=== PATIENT | female | born 1990 | race Two or more races ===

== ENCOUNTER 2021-03-18 23:46 | Emergency (ER) | payer SELFPAY ==
[~2021-03-18] VITALS: Ht 149.9 cm; Wt 74.1 kg
[~2021-03-18 23:46] MED LIST: DOCU-109 PO; IBUP-1060 PO; LABE100T5 PO; OXYC1TAB15 PO
--- NOTE | 2021-03-19 00:17 | PHYS DOC ---
Past Medical History Past Medical History: No Pertinent History Past Surgical History: No Surgical History Smoking Status: Never Smoker General Adult EDM: Chief Complaint: BACK PAIN OR INJURY HPI: HPI: Patient is a 31 year old female who presents with abdominal pain for the past 5 hours that started in her right lower back and radiates around to her right lower abdomen. She is also having pain in her mid lower abdomen. She has not taken anything for the pain. She notes she has had dysuria for the past four days. 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 She also notes she is having nausea. Patient also complains of shortness of breath that is exacerbated by the pain. She has not had any fevers. She otherwise is not complaining of any other symptoms. Review of Systems: Review of Systems: Constitutional: Denies fever or chills HENT: Denies nasal congestion or sore throat Respiratory: Reports shortness of breath, denies cough Cardiovascular: Denies chest pain or palpitations GI: Reports abdominal pain and nausea, denies vomiting : Reports dysuria and hematuria Musculoskeletal: reports right lower back pain, denies other joint pain Integument: Denies rash or skin lesions Neurologic: Denies headache or focal weakness Complete systems were reviewed and found to be within normal limits, except as documented in this note. Heart Score: C/O Chest Pain: N/A Allergies: Allergies: Allergies Coded Allergies Type Severity Reaction Last Updated Verified ampicillin Allergy Intermediate Rash 03/01/14 Yes Physical Exam: PE: Constitutional: Well developed, well nourished, moderate distress secondary to pain, non-toxic appearance HENT: Normocephalic, atraumatic Eyes: Conjunctiva normal, no discharge Neck: Normal range of motion, supple Lungs & Thorax: Lungs CTAB, Heart regular rate and rhythm, No respiratory distress, equal chest rise and fall Abdomen: Tender to all four quadrants, significant suprapubic and RLQ tenderness, no erythema or signs of trauma to abdomen Skin: Warm, dry, no erythema, no rash Back: Right sided CVA tenderness Extremities: No tenderness, no edema Neurologic: Alert and oriented X 3, normal motor function, normal sensory function, no focal deficits noted Psychologic: Affect normal, judgment normal EKG: EKG: [] Radiology/Procedures: Radiology/Procedures: PROCEDURE: CT ABDOMEN PELVIS WO CONTRAST EXAM: CT Abdomen and Pelvis without IV contrast CLINICAL HISTORY: Reason: right flank pain / Spl. Instructions: / History: . COMPARISON: none TECHNIQUE: Helical CT of the abdomen and pelvis without intravenous contrast. Axial, coronal and sagittal reformatted images were generated. PQRS compliance statement - One or more of the following individualized dose reduction techniques were utilized for this study: 1. Automated exposure control 2. Adjustment of the mA and/or kV according to patient size 3. Use of iterative reconstruction technique FINDINGS: Lack of intravenous contrast limits evaluation of solid organs, vasculature, and lymph nodes. Lower chest: Lung bases are clear. Calcified granuloma lingula. Abdomen and Pelvis: No focal liver lesion. Gallbladder is normal. No biliary ductal dilatation. Pancreas, spleen and adrenal glands are normal. No focal renal lesion. No hydronephrosis. No hydroureter. Uterus and adnexa are unremarkable. Appendix is normal. Moderate colonic stool content is seen. No small or large bowel dilatation. No abdominal or pelvic ascites. No abdominal or pelvic lymphadenopathy. Aorta is normal in caliber. Bones: No aggressive osseous lesion is seen. IMPRESSION: Moderate colonic stool content. No bowel obstruction. No renal tract calculus. No hydronephrosis or hydroureter. Electronically signed by: Evens Fleming MD (03/19/2021 1:50 AM) [facility] Course & Med Decision Making: Course & Med Decision Making Pertinent Labs and Imaging studies reviewed. (See chart for details) Patient presented with lower back and abdominal pain. Ketorolac and Reglan were given for pain and nausea management. Urine was negative for infection. CT abdomen/pelvis w/o contrast was ordered which was positive for moderate colonic stool indicative of constipation. Patient stable for discharge with outpatient follow-up with PCP. Discussed findings and plan with patient, who acknowledges understanding and agreement. Sent home with Hyoscyamine and Zofran. [] Dragon Disclaimer: Pradip Disclaimer: This electronic medical record was generated, in whole or in part, using a voice recognition dictation system. Departure Departure Impression: Primary Impression: Abdominal pain Qualified Codes: R10.31 - Right lower quadrant pain Disposition: HOME / SELF CARE / HOMELESS Condition: STABLE Referrals: NO PCP (PCP) JUANITO GOODMAN MD Patient Instructions: Abdominal Pain, [id number] Additional Instructions: Increase fluid hydration. Follow closely with your doctor. Scripts Hyoscyamine Sulfate (LEVSIN-SL) 0.125 Mg Tab.subl 0.125 MG SL Q4-6HRS PRN for PAIN, #20 TAB Prov: CEASAR WOLFF DO 03/19/21 Ondansetron (ONDANSETRON ODT) 4 Mg Tab.rapdis 1 TAB PO PRN Q6-8HRS PRN for NAUSEA, #16 TAB Prov: CEASAR WOLFF DO 03/19/21 CEASAR WOLFF DO Mar 19, 2021 00:17
[2021-03-19 00:45] LABS: BILIRUBIN,URINE NEGATIVE (NEG); CLARITY,URINE CLEAR; COLOR,URINE YELLOW; NITRITE,URINE NEGATIVE (NEG); PROTEIN,URINE NEGATIVE (NEG-TRACE); UROBILINOGEN,URINE 0.2 mg/dL (0.2 mg/dL)
[2021-03-19 00:55] LABS: BACTERIA,URINE FEW /HPF (0-FEW); RBC,URINE 0 /HPF (0-2); WBC,URINE OCC /HPF (0-4)
[2021-03-19] MEDS ORDERED: IV NORMAL SALINE 1000ML BAG 1,000 ML IV ONE (01:00)
[2021-03-19] MEDS ORDERED: METOCLOPRAMIDE HCL 10 MG/2 ML VIAL. IVP ONE (01:00)
[2021-03-19] MEDS ORDERED: KETOROLAC 30 MG/ML VIAL. IVP ONE (01:00)
[2021-03-19 01:42] LABS: BASO # 0.1 x10^3/uL (0.0-0.2); BASO % 1 % (0-3); EOS # 0.1 x10^3/uL (0.0-0.7); EOS % 1 % (0-3); HEMATOCRIT 37.5 % (36.0-47.0); HEMOGLOBIN 12.7 g/dL (12.0-15.5); LYMPH % 34 % (24-48); MEAN CORPUSCULAR HEMOGLOBIN 30 pg (25-35); MEAN CORPUSCULAR HGB CONC 34 g/dL (31-37); MEAN CORPUSCULAR VOLUME 88 fL (79-100); MONO # 0.6 x10^3/uL (0.0-1.1); MONO % 7 % (0-9); NEUT # 5.1 x10^3/uL (1.8-7.7); NEUT % 57 % (31-73); PLATELET COUNT 262 x10^3/uL (140-400); RED BLOOD COUNT 4.26 x10^6/uL (3.50-5.40); RED CELL DISTRIBUTION WIDTH 12.7 % (11.5-14.5); WHITE BLOOD COUNT 8.9 x10^3/uL (4.0-11.0)
--- NOTE | 2021-03-19 01:52 | RAD ---
EXAM: CT Abdomen and Pelvis without IV contrast CLINICAL HISTORY: Reason: right flank pain / Spl. Instructions: / History: . COMPARISON: none TECHNIQUE: Helical CT of the abdomen and pelvis without intravenous contrast. Axial, coronal and sagi ttal reformatted images were generated. PQRS compliance statement - One or more of the following individualized dose reduction techniques wer e utilized for this study: 1. Automated exposure control 2. Adjustment of the mA and/or kV according to patient size 3. Use of iterative reconstruction technique FINDINGS: Lack of intravenous contrast limits evaluation of solid organs, vasculature, and lymph nodes. Lower chest: Lung bases are clear. Calcified granuloma lingula. Abdomen and Pelvis: No focal liver lesion. Gallbladder is normal. No biliary ductal dilatation. Pancreas, spleen and adre nal glands are normal. No focal renal lesion. No hydronephrosis. No hydroureter. Uterus and adnexa are unremarkable. Appendix is normal. Moderate colonic stool content is seen. No sm all or large bowel dilatation. No abdominal or pelvic ascites. No abdominal or pelvic lymphadenopathy. Aorta is normal in caliber. Bones: No aggressive osseous lesion is seen. IMPRESSION: Moderate colonic stool content. No bowel obstruction. No renal tract calculus. No hydronephrosis or hydroureter. Electronically signed by: Evens Fleming MD (03/19/2021 1:50 AM) [facility]
[2021-03-19 01:56] LABS: CALCIUM 8.6 mg/dL (8.5-10.1); CREATININE 0.6 mg/dL (0.6-1.0); GFR 115.1; POTASSIUM 3.7 mmol/L (3.5-5.1)
[2021-03-19 02:01] LABS: ALBUMIN 3.5 g/dL (3.4-5.0); ALBUMIN/GLOBULIN RATIO 0.8 (1.0-1.7); TOTAL BILIRUBIN 0.2 mg/dL (0.2-1.0)
[2021-03-19 02:04] VITALS: BP 112/70
[2021-03-19] MEDS ORDERED: ONDA4TAB12 PO (02:42)
[2021-03-19] MEDS ORDERED: HYOS0.1265 SL (02:42)
== END 2021-03-19 02:55 | disposition home or self-care (01) ==
LOC: ER 23:46
DX: R10.31 Right lower quadrant pain (principal); M54.50 Low back pain, unspecified; Z88.1 Allergy status to other antibiotic agents
CPT/HCPCS: 36415; 74176; 80053; 81001; 81025; 83690; 85025; 96361; 96374; 96375; 99285; J1885; J2765; J7030